=== PATIENT | male | born 1985 | race Caucasian/White ===

== ENCOUNTER → 2020-02-01 | Outpatient (CLI) | payer MEDICARE, OTHER ==
[2014-05-08 00:30] VITALS: BP 134/80
[~2020-02-01] MED LIST: ACET-704 PO; ALBU2.5V14 NEB; ALBU2.5V8 IH; ALBU2.5V8 INH; ARIP2TAB35 PO; BENZ2TAB5 PO; DIVA-51 PO; HALO2TAB PO; IBUP800T19 PO; LANS30CA66 PO; LEVO112T4 PO; SERT50TA PO; SODI44SP NS; TRAZ-125 PO
[2020-02-01 10:18] LABS: ALBUMIN 3.3 g/dL (3.4-5.0); ALBUMIN/GLOBULIN RATIO 1.1 (1.0-1.7); ALK PHOS 57 U/L (46-116); ALT (SGPT) 13 U/L (16-63); ANION GAP 8 (6-14); AST (SGOT) 11 U/L (15-37); BLOOD UREA NITROGEN 4 mg/dL (8-26); BUN/CREATININE RATIO 4 (6-20); CALCIUM 9.5 mg/dL (8.5-10.1); CARBON DIOXIDE 25 mmol/L (21-32); CHLORIDE 105 mmol/L (98-107); CREATININE 0.9 mg/dL (0.7-1.3); GFR 95.5; GLUCOSE 89 mg/dL (70-99); POTASSIUM 4.6 mmol/L (3.5-5.1); SODIUM 138 mmol/L (136-145); TOTAL BILIRUBIN 0.5 mg/dL (0.2-1.0); TOTAL PROTEIN 6.4 g/dL (6.4-8.2)
[2020-02-01 10:19] LABS: VAL ACID 106 mcg/mL (50-100)
[2020-02-01 16:16] LABS: FREE T4 1.05 ng/dL (0.76-1.46); THYROID STIM HORMONE (TSH) 0.044 uIU/mL (0.358-3.740)
== END ==
LOC: LAB 09:12
PROVIDERS: ATTEND Nurse Practitioner Psychiatric/Mental Health
DX: F28 Other psychotic disorder not due to a substance or known physiological condition (principal); Z79.899 Other long term (current) drug therapy
CPT/HCPCS: 36415; 80053; 80164; 80178; 84146; 84439; 84443